=== PATIENT | male | born 1965 ===

== ENCOUNTER 2017-02-08 07:20 | Day surgery (SDC) | payer BC ==
--- NOTE | ~2017-02-08 | EGD ---
EGD REPORT [facility] [address] [place] [address] NAME: FLORENTIN REYNOLDS : [birth year] STATUS : REG [facility]#: [id number] AGE: 51 ADM/REG DATE : 02/08/17 MR#: [id number] REPORT SERV DATE: 02/08/17 DICTATED BY: LUIS ARCOS DATE: 02/08/17 REPORT STATUS : Draft TRANSCRIBED BY: [employer] DATE: 02/08/17 [facility] Patient Name: Florentin Reynolds Date of : 1965 Attending MD: LUIS ARCOS MD Procedure Date No Time: 02/08/2017 Procedure: Colonoscopy Indications: Screening for colorectal malignant neoplasm Referring MD: GEMA GREENE Medicines: as per anesthesia Complications: No immediate complications. Procedure: Pre-Anesthesia Assessment: - ASA Grade Assessment: III - A patient with severe systemic disease. After I obtained informed consent, the scope was passed under direct vision. Throughout the procedure, the patient's blood pressure, pulse, and oxygen saturations were monitored continuously. The PCF [id number] was introduced through the anus and advanced to the cecum, identified by appendiceal orifice and ileocecal valve. The colonoscopy was performed without difficulty. The patient tolerated the procedure. The quality of the bowel preparation was adequate to identify polyps. Findings: The perianal and digital rectal examinations were normal. A few small-mouthed diverticula were found in the transverse colon. Internal hemorrhoids were found during endoscopy and were mild. Impression: - Diverticulosis in the transverse colon. - Internal hemorrhoids. Recommendation: - Repeat colonoscopy in 10 years for surveillance. Procedure Code(s): --- Professional --- 62511, Colonoscopy, flexible, proximal to splenic flexure; diagnostic, with or without collection of specimen(s) by brushing or washing, with or without colon decompression (separate procedure) Diagnosis Code(s): --- Professional --- K64.8, Other hemorrhoids K57.30, Diverticulosis of large intestine without perforation or abscess without bleeding Z12.11, Encounter for screening for malignant neoplasm EGD REPORT [address] [place]. [address] NAME: FLORENTIN REYNOLDS : [birth year] [place]US [place] [facility] [place] [id number] AGE: 51 ADM/REG DATE : 02/08/17 MR#: [id number] REPORT SERV DATE: 02/08/17 DICTATED BY: LUIS ARCOS. DATE: 02/08/17 REPORT STATUS : Draft TRANSCRIBED BY: [employer] DATE: 02/08/17 of colon CPT copyright 2013 [employer]. All rights reserved. The codes documented in this report are preliminary and upon branch specialist review may be revised to meet current compliance requirements. LUIS ARCOS MD 02/08/2017 10:23 AM This report has been signed electronically. Number of Addenda: 0 Note Initiated On: 02/08/2017 10:01 AM Scope Withdrawal Time 0 hours 6 minutes 56 seconds [address] [place] [address]
[~2017-02-08 07:20] MED LIST: PRILO PO; ZESTORETIC1 TA1 PO
== END 2017-02-08 23:59 | disposition home health service (06) ==
LOC: DMU 07:20
PROVIDERS: Internal Medicine Gastroenterology
PROC: 0DJD8ZZ Inspection of Lower Intestinal Tract, Via Natural or Artificial Opening Endoscopic (ICD-10-PCS; principal; 2017-02-08 09:00)
DX: Z12.11 Encounter for screening for malignant neoplasm of colon (principal); K57.30 Diverticulosis of large intestine without perforation or abscess without bleeding; K64.8 Other hemorrhoids; I10 Essential (primary) hypertension; K21.9 Gastro-esophageal reflux disease without esophagitis; L40.9 Psoriasis, unspecified; Z79.899 Other long term (current) drug therapy; Z87.891 Personal history of nicotine dependence; Z98.890 Other specified postprocedural states